=== PATIENT | female | born 1955 | race Caucasian/White ===

== ENCOUNTER 2018-01-30 07:08 | Outpatient (CLI) | payer OTHER ==
[~2018-01-30 07:08] MED LIST: AMBIEN10 MG PO; CELEBREX 200MG; COZAAR50 MG PO; HUMALOG100 U/ML SQ; HUMULIN N100 U/ML SQ; LANOXIN0.25 MG PO; LANTUS100 U/ML SQ; LEVOTHROID112 MCG PO; LEXAPRO 10 MG; MEDROL4 MG PO; NORFLEX100 MG PO; PRILOSEC20 MG PO; VERAPAMIL HCL40 MG PO; VYTORIN 10-40 M1 TAB PO; XANAX0.25 MG PO
== END 2018-01-30 07:20 | disposition home or self-care (01) ==
LOC: NUCLEAR 07:08
DX: I25.10 Atherosclerotic heart disease of native coronary artery without angina pectoris (principal)
CPT/HCPCS: 78452; A9500; 93017

== ENCOUNTER 2018-06-07 08:58 | Outpatient (CLI) | payer OTHER | END 2018-06-07 13:28 | disposition home or self-care (01) | LOC: TOM 08:58 | DX: S06.309A Unspecified focal traumatic brain injury with loss of consciousness of unspecified duration, initial encounter (principal); S63.002A Unspecified subluxation of left wrist and hand, initial encounter ==

== ENCOUNTER 2022-08-30 10:11 | Outpatient (CLI) | payer OTHER | END 2022-08-30 10:22 | disposition home or self-care (01) | LOC: SONOGRAMA 10:11 | PROVIDERS: ATTEND Physical Medicine & Rehabilitation | DX: M25.511 Pain in right shoulder (principal) ==